=== PATIENT | female | born 1995 | race Caucasian/White ===

== ENCOUNTER 2020-04-02 21:00 | Outpatient (REF) | payer BC, SELFPAY ==
[2020-04-05 16:08] LABS: Chlamydia Result Negative (Negative); GC Result Negative (Negative)
== END 2020-04-02 21:20 ==
LOC: NCHCN 21:00
PROVIDERS: PCP Nurse Practitioner; Visit Provider Nurse Practitioner Family
DX: R10.2 Pelvic and perineal pain (principal); Z11.3 Encounter for screening for infections with a predominantly sexual mode of transmission
CPT/HCPCS: 87491; 87591

== ENCOUNTER 2020-04-05 08:45 | Outpatient (CLI) | payer BC, SELFPAY ==
--- NOTE | 2020-04-05 09:00 | DI.US_ITS ---
EXAM: US PELVIS TRANSVAGINAL CLINICAL HISTORY: pelvic pain, R10.2. TECHNIQUE: Transabdominal and transvaginal pelvic ultrasound was performed using standard protocol. COMPARISON: No exams were available for comparison FINDINGS: KIDNEYS: Kidneys are symmetric in size. No evidence of renal calculi. No evidence of hydronephrosis. No renal mass or cyst identified. UTERUS: Position: Anteverted. Size: 7.3 x 3.3 x 4.9 cm Endometrium: 0.3 cm. Normal for patient's menstrual status. An IUD is present and is in good position . Myometrium: Unremarkable. Cervix: Unremarkable. OVARIES: Right: 3.7 x 2.2 x 2.1 cm Cyst or mass: Normal appearing small follicular cysts. Left: 1.4 x 1.0 x 0.9 cm Cyst or mass: Normal appearing small follicular cysts. DOPPLER: Color: Symmetric and uniform flow to both ovaries. No hyperemia. Duplex: Normal ovarian arterial waveforms visualized. CUL-DE-SAC: Free fluid: None. Other: None. IMPRESSION: 1. Normal sonographic appearance of the kidneys. 2. Normal-appearing uterus with endometrial stripe within normal limits. IUD is present and in good position. 3. Unremarkable bilateral ovaries. DATA REPOSITORY:
== END 2020-04-05 09:05 ==
PROVIDERS: PCP Nurse Practitioner; Visit Provider Nurse Practitioner Family
DX: R10.2 Pelvic and perineal pain (principal); Z97.5 Presence of (intrauterine) contraceptive device
CPT/HCPCS: 76830; 76856

== ENCOUNTER 2020-09-19 01:04 | Emergency (ER) | payer BC, SELFPAY ==
--- NOTE | 2020-09-19 01:02 | ED.GENADUL_ITS ---
Discharge Plan Disposition Patient Disposition: HOME Condition: Good Discharge Details Clinical Impression: Concussion Primary Care Provider: Cyndy Molina ED Provider: Seamus Mccullough Home Meds and New Rx's Prescriptions: Continued lilletta IUD implant RF: 0 Discharge Instructions Instructions: Concussion (ED) Additional Instructions: At this time you have evidence of a notable concussion. If you have any worsening of your symptoms please return immediately. Please be very cognizant of any evidence of worsening headache, vomiting, weakness, numbness, dizziness, decreased concentration, memory problems, sleep disturbance, irritability, fatigue, visual disturbances, judgment problems, depression, or anxiety. These may represent a worsening of your condition or a different, or worse pathology. Please either return immediately for reevaluation or follow up with your primary care provider immediately for continued assessment, reassessment, and management. Please avoid any contact sports, or activities which could cause jarring of your head. A second repeat injury can cause significant and permanent brain damage. After you have complete resolution of any of the symptoms noted above please wait one COMPLETE week until you resume normal gentle physical activity. If you have any return of the symptoms after this, please again wait 1 week after you have complete resolution of your symptoms to return to gentle and normal activities. Referrals: Cyndy Molina, [facility] [Primary Care Provider] - Medical Decision Making 25-year-old female with no significant past medical history presents today for evaluation of fall. Patient had a few alcoholic seltzer smith this evening, went home with her significant other, mother in the kitchen she slipped and hit her head. She is notably unconscious for a short period of time, she woke up with stimulation by her significant other, felt nauseous and then vomited. He came to the ER for further assessment. Currently the patient states that she does feel like she is in a fog, does have a mild posterior headache, feels little dizzy, static today she denies any chest pain, neck pain numbness tingling or weakness. No other complaints at this time. No IV or illicit drug use. No other modifying factors. Exam demonstrates no focal neurologic deficits or other abnormalities, the patient's nausea and headache and concern for potential intracranial injury. CT scan was ordered per virtual radiology no evidence of bleeding or acute intracranial abnormality. Patient was observed here for an hour, repeat neurologic exam shows no abnormalities. She appears well. Significant other is at bedside, I discussed the entire case with both of them, and at this time with negative CT scan showing no acute intracranial process, no other risk factors I feel she can be safely discharged home. Diagnosis concussion. Discussed red flags which to return. I have extensively reviewed the treatment plan and discharge instructions with the patient and their family. I have addressed all patient concerns at this time. The patient and family was made aware of what symptoms to monitor for that would warrant a return to the emergency department. Discussed the plan with the patient and family, they demonstrate verbal understanding and agreement with our assessment and plan at this time. FINDINGS: Brain: Normal. No hemorrhage. Unremarkable white matter. No mass effect. Cerebral ventricles: No ventriculomegaly. Bones/joints: Unremarkable. No acute fracture. Paranasal sinuses: Visualized sinuses are unremarkable. No fluid levels. Mastoid air cells: Visualized mastoid air cells are well aerated. Soft tissues: Unremarkable. IMPRESSION: No acute intracranial abnormality. Thank you for allowing us to participate in the care of your patient. Dictated and Authenticated by: Edson Lemos MD 09/19/2020 1:48 AM Eastern Time ([place] & [place]) HPI General Date/Time Provider Initiated Documentation: 09/19/20 01:23 EDT . HPI Narrative: 25-year-old female with no significant past medical history presents today for evaluation of fall. Patient had a few alcoholic seltzer smith this evening, went home with her significant other, mother in the kitchen she slipped and hit her head. She is notably unconscious for a short period of time, she woke up with stimulation by her significant other, felt nauseous and then vomited. He came to the ER for further assessment. Currently the patient states that she does feel like she is in a fog, does have a mild posterior headache, feels little dizzy, static today she denies any chest pain, neck pain numbness tingling or weakness. No other complaints at this time. No IV or illicit drug use. No other modifying factors. Related Data Home Medications Medication Instructions Recorded Confirmed lilletta IUD IMPLANT 01/20/20 04/02/20 Allergies Allergy/AdvReac Type Severity Reaction Status Date / Time bee venom protein (honey bee) Allergy Mild swelling/ra Verified 09/19/20 01:28 EDT sh Sulfa (Sulfonamide Allergy Mild rash/vomiti Verified 09/19/20 01:28 EDT Antibiotics) ng nitrofurantoin AdvReac Mild vomiting Verified 09/19/20 01:28 EDT trimethoprim AdvReac Mild rash Verified 09/19/20 01:28 EDT General Stated Complaint: HeadInjury JESSE: 3 Review of Systems All systems reviewed & are unremarkable except as noted in HPI and below PFSH Medical History (Reviewed 09/19/20 @ 01:22 EST by Seamus Mccullough DO) BPV (benign positional vertigo) Pelvic pain Tarsal tunnel syndrome Family History (Reviewed 09/19/20 @ 01:22 EST by Seamus Mccullough DO) Mother No problems noted. Father Hyperlipidemia Hypertension Brother , age 26 Depression Substance abuse Brother No problems noted. Maternal Grandfather No problems noted. Paternal Grandfather , in his 40s No problems noted. Maternal Grandmother No problems noted. Paternal Grandmother Diabetes Social History (Reviewed 09/19/20 @ 01:22 EST by Seamus Mccullough DO) Smoking/Tobacco Use Status: Former Tobacco Use Smoking risk assessment performed?: Yes Alcohol Intake: current Alcohol Intake frequency: 0-2 drinks per day Alcohol type: beer and wine Drug use: Rarely Substance use type: marijuana Caregiver/Support person: No Household members: friend(s) Housing: apartment Communication Needs: None Do you need help understanding health information?: Rarely Pets and animals: Yes Pets and animals: cat(s) Sexually active: Yes Do you think of yourself as: straight/heterosexual Current gender identity: female What is your relationship status?: never How often do you talk on the phone with friends or family?: twice per week How often do you get together with friends or relatives?: twice per week How often do you attend bahai or uatsdin services?: decline to answer Do you belong to any clubs or organized social groups?: no Panel score (0-1 are the most socially isolated patients): 1 What type of physical activity do you participate in: running Duration: 15-30 minutes/day Frequency: 3-4 times per week Nisha/Church: None Special nisha needs: No Seatbelt use: always Helmet use: Yes Helmet use: always Drive intox or ride w/intox cross country truck driver: No Do you feel safe at home: Yes Do you feel safe in your relationship?: Yes Exam Narrative Exam Narrative: 1.Const: Well-nourished, Well-developed, appearing stated age 2.Eyes: PERRL, no conjunctival injection, and symmetrical lids. 3.ENT: Atraumatic external nose and ears. Moist MM. Neck: Symmetric, trachea midline, No thyromegaly. There is no evidence of raccoon eyes, schreiber sign, CSF rhinorrhea, mastoid tenderness, cranial crepitus, hemotympanum, exophthalmos, or hyphema. Patient demonstrates intact dentition with no signs of tooth avulsion or fracture, no signs of jaw deformity, no evidence of a LeFort's fracture, with an intact palate, nose and orbital region. There is no evidence of a nasal septal hematoma. No proptosis. Jaw closes symmetrically. Airway is clear. 4.CVS: +S1/S2, No murmurs or gallops. Peripheral pulses 2+ and equal in all extremities. Brisk capillary refill in all extremities. 5.RESP: Unlabored respiratory effort. Clear to auscultation bilaterally. No wheezes rales or rhonchi 6.GI: Soft, Nontender/Nondistended, No hepatosplenomegaly. No guarding or rebound. 7.MSK: Normocephalic/Atraumatic, Extremities w/o deformity or ttp No cyanosis or clubbing, Normal movement of all extremities no midline cervical thoracic or lumbar spine tenderness. 8.Skin: Warm, Dry. No rashes or lesions. 9.Neuro: data analysis intern II-XII grossly intact. Sensation grossly intact, no focal neurologic deficits. All 6 cardinal planes of vision are fully intact. No evidence of rotatory or vertical nystagmus. The patient demonstrated a normal [id number], good dexterity. There was no evidence of dysdiadochokinesia. Patient was able to ambulate without difficulty. There was no wide-based gait. Romberg testing was normal. Yamy-ss-hrhd testing was normal. Sensation was intact bilaterally as well as muscle strength bilaterally for all extremities. Patient was able to verbalize butter cup with no slurring, or miss pronunciation. 10.Psych: (AAO) x3. Appropriate mood and affect Course Vital Signs Vital signs: Vital Signs Temperature 36.8 C 09/19/20 01:21 EDT Pulse 76 09/19/20 01:21 EDT Respiratory Rate 16 09/19/20 01:21 EDT Blood Pressure 106/75 09/19/20 01:21 EDT Pulse Oximetry 100 09/19/20 01:21 EDT Temperature 36.8 C 09/19/20 01:21 EDT Temperature Source Temporal Artery Scan 09/19/20 01:21 EDT Pulse 76 09/19/20 01:21 EDT Respiratory Rate 16 09/19/20 01:21 EDT Respiratory Effort Non-Labored 09/19/20 01:30 EDT Blood Pressure 106/75 09/19/20 01:21 EDT Blood Pressure Position Sitting 09/19/20 01:21 EDT Pulse Oximetry 100 09/19/20 01:21 EDT Oxygen Delivery Method Room Air 09/19/20 01:21 EDT Oxygen Flow Rate 0 09/19/20 01:21 EDT Pain Level 5 09/19/20 01:21 EDT
--- NOTE | 2020-09-19 01:15 | DI.CT_ITS ---
EXAM: CT HEAD WO CLINICAL HISTORY: fall, hit head, altered. TECHNIQUE: Imaging Protocol: Axial computed tomography images with coronal and sagittal reformatted images were created and reviewed COMPARISON: No exams were available for comparison FINDINGS: Ventricles and Extra axial spaces: Normal in size and morphology for the patient's age. Hemorrhage: None. Cerebral parenchyma: Normal. Midline shift: None. Brainstem/Cerebellum: Normal. Calvarium: Normal. Visualized Paranasal sinuses/Mastoids: Clear. Soft Tissues: Unremarkable. IMPRESSION: No acute intracranial process. RADIATION DOSE DELIVERED: 669.55mGy.cm Total DLP DATA REPOSITORY: All CT scans at this facility are submitted to the National Radiology Data Registry (NRDR) Dose Index Registry (DIR) with the [employer] (A[employer]). RADIATION OPTIMIZATION: All CT scans at this facility use at least one of these dose optimization te chniques: automated exposure control; mA and/or kV adjustment per patient size (includes targeted exa ms where dose is matched to clinical indication); or iterative reconstruction.
[2020-09-19 01:21] VITALS: BP 106/75; PULSE 76; RESP 16; TEMP 36.8; O2SAT 100
--- NOTE | 2020-09-19 01:48 | DI.VRAD_ITS ---
PROCEDURE INFORMATION: Exam: CT Head Without Contrast Exam date and time: 09/19/2020 1:39 AM Age: 25 years old Clinical indication: Other: Fall, hit head, altered TECHNIQUE: Imaging protocol: Computed tomography of the head without contrast. COMPARISON: No relevant prior studies available. FINDINGS: Brain: Normal. No hemorrhage. Unremarkable white matter. No mass effect. Cerebral ventricles: No ventriculomegaly. Bones/joints: Unremarkable. No acute fracture. Paranasal sinuses: Visualized sinuses are unremarkable. No fluid levels. Mastoid air cells: Visualized mastoid air cells are well aerated. Soft tissues: Unremarkable. IMPRESSION: No acute intracranial abnormality. Dictated and Authenticated by: Edson Lemos MD. Ordering:ROSELIA Way MD
== END 2020-09-19 01:25 | disposition home or self-care (01) ==
LOC: ER 01:28
PROVIDERS: Emergency Provider Student in an Organized Health Care Education/Training Program; PCP Nurse Practitioner
DX: S06.0X9A Concussion with loss of consciousness of unspecified duration, initial encounter (principal); W01.10XA Fall on same level from slipping, tripping and stumbling with subsequent striking against unspecified object, initial encounter
CPT/HCPCS: 99284; 70450; 99283